=== PATIENT | female | born 1965 | race Caucasian/White ===

== ENCOUNTER 2016-10-07 08:56 | Emergency (ER) | payer BC, OTHER ==
[~2016-10-07] VITALS: Ht 160 cm; Wt 61.0 kg
[2016-10-07 09:01] VITALS: BP 122/73; PULSE 54; RESP 18; TEMP 97.9; O2SAT 98
[2016-10-07] MEDS ORDERED: SERT25TA83 PO (09:16)
[2016-10-07] MEDS ORDERED: MULT-135 PO (09:16)
[2016-10-07] MEDS ORDERED: ALEN35TA24 PO (09:16)
[2016-10-07] MEDS ORDERED: CALCTAB80 PO (09:16)
[2016-10-07] MEDS ORDERED: OMEG100037 (09:16)
[2016-10-07] MEDS ORDERED: SODIUM CHLOR 0.9% 1000 ML INJ 1,000 ML IV SCH (09:22)
--- NOTE | 2016-10-07 09:24 | PD ---
HPI Chief Complaint: Abdominal Pain Time Seen by Provider: 09:04 Travel History International Travel<30 days: No Contact w/Intl Traveler<30days: No Traveled to known affect area: No History of Present Illness HPI This 51-year-old female is complaining of abdominal pain and she started on Saturday feeling nauseated and having some epigastric cramping. She has been having an upset stomach since then and some left upper quadrant pain. Yesterday she ate something and then last night she had quite severe left upper quadrant cramping around 3:00 which lasted for some time. She has not had any vomiting. She has not had a bowel movement since Saturday. She has no history of abdominal surgery. She did have a colonoscopy 2-3 weeks ago and had a small polyp in his sigmoid colon removed. She is not aware of any fever or chills. PFSH Past Medical History Medical History: Denies Significant Hx Influenza Vaccination: No ?: Not Past Surgical History Other Surgery: Yes (MELANOMA RT ARM) Social History Alcohol Use: Yes (ONE PER DAY) Tobacco Use: No Substance Use: No Allergies-Medications (Allergen,Severity, Reaction): Coded Allergies: Penicillin (Verified Allergy, Unknown, 10/07/16) Sulfa (Verified Allergy, Unknown, 10/07/16) Reported Meds & Prescriptions Reported Meds & Active Scripts Active Reported Multi Vitamin (Multiple Vitamin) 1 Tab Tab 1 Tab PO DAILY Fish Oil 1000 mg ([place]-3 Fatty Acids) 1 Cap Cap Calcium 1000 + D (Calcium Carbonate-Cholecalciferol) 1,000-800 Mg-Unit Tab 1 Tab PO Alendronate (Alendronate Sodium) 35 Mg Tab 35 Mg PO Q7D Sertraline (Sertraline HCl) 25 Mg Tab 25 Mg PO DAILY Review of Systems General / Constitutional: No: Fever, Chills Eyes: No: Diploplia, Blurred Vision HENT: No: Headaches Cardiovascular: No: Chest Pain or Discomfort, Palpitations Respiratory: No: Cough, Shortness of Breath Gastrointestinal: Positive: Nausea, Abdominal Pain, No: Vomiting, Diarrhea Genitourinary: No: Frequency Skin: No Rash Physical Exam Narrative GENERAL: Well-developed female SKIN: Warm and dry. HEAD: Atraumatic. Normocephalic. EYES: Pupils equal and round. No scleral icterus. No injection or drainage. ENT: No nasal bleeding or discharge. Mucous membranes pink and moist. NECK: Trachea midline. No JVD. CARDIOVASCULAR: Regular rate and rhythm. No murmur appreciated. RESPIRATORY: No accessory muscle use. Clear to auscultation. Breath sounds equal bilaterally. GASTROINTESTINAL: Abdomen soft, there is some mild left upper quadrant tenderness without guarding or rigidity, nondistended. Hepatic and splenic margins not palpable. MUSCULOSKELETAL: No obvious deformities. No clubbing. No cyanosis. No edema. NEUROLOGICAL: Awake and alert. No obvious cranial nerve deficits. Motor grossly within normal limits. Normal speech. PSYCHIATRIC: Appropriate mood and affect; insight and judgment normal. Data Data Last Documented VS Vital Signs Date Time Temp Pulse Resp B/P Pulse Ox O2 Delivery O2 Flow Rate FiO2 10/07/16 09:01 97.9 54 18 122/73 98 Orders Urinalysis - C+S If Indicated (10/07/16 09:09) Complete Blood Count With Diff (10/07/16 09:22) Comprehensive Metabolic Panel (10/07/16 09:22) Lipase (10/07/16 09:22) Ct Abd/Pel W Iv Contrast(Rout) (10/07/16 09:22) Iv Access Insert/Monitor (10/07/16 09:22) Ondansetron Inj (Zofran Inj) (10/07/16 09:30) Pantoprazole Inj (Protonix Inj) (10/07/16 09:30) Sodium Chlor 0.9% 1000 Ml Inj (Ns 1000 M (10/07/16 09:22) Sodium Chloride 0.9% Flush (Ns Flush) (10/07/16 09:30) Urine Culture (10/07/16 09:05) Al-Mag Hy-Si 40-40-4 Mg/Ml Liq (Mag-Al P (10/07/16 10:15) Iohexol 350 Inj (Omnipaque 350 Inj) (10/07/16 10:49) Labs Laboratory Tests Test 10/07/16 10/07/16 09:05 09:25 Urine Collection Type CLEAN CATCH Urine Color YELLOW Urine Turbidity SLIGHT Urine pH 6.0 Urine Specific [place] 1.012 Urine Protein NEG mg/dL Urine Glucose (UA) NEG mg/dL Urine Ketones NEG mg/dL Urine Occult Blood TRACE Urine Nitrite NEG Urine Bilirubin NEG Urine Leukocyte Esterase SMALL Urine RBC 0-3 /hpf Urine WBC 6-8 /hpf Urine WBC Clumps FEW Urine Squamous Epithelial 0-5 /hpf Cells Urine Transitional Epithelial 0-5 /hpf Cells Urine Amorphous Sediment FEW Urine Bacteria FEW /hpf Microscopic Urinalysis Comment CULTURE INDICATED Urine Collection Time 0905 White Blood Count 5.9 TH/MM3 Red Blood Count 4.19 MIL/MM3 Hemoglobin 13.6 GM/DL Hematocrit 38.3 % Mean Corpuscular Volume 91.4 FL Mean Corpuscular Hemoglobin 32.5 PG Mean Corpuscular Hemoglobin 35.6 % Concent Red Cell Distribution Width 11.7 % Platelet Count 230 TH/MM3 Mean Platelet Volume 6.5 FL Neutrophils (%) (Auto) 49.0 % Lymphocytes (%) (Auto) 43.9 % Monocytes (%) (Auto) 5.5 % Eosinophils (%) (Auto) 1.2 % Basophils (%) (Auto) 0.4 % Neutrophils # (Auto) 2.9 TH/MM3 Lymphocytes # (Auto) 2.6 TH/MM3 Monocytes # (Auto) 0.3 TH/MM3 Eosinophils # (Auto) 0.1 TH/MM3 Basophils # (Auto) 0.0 TH/MM3 CBC Comment DIFF FINAL Differential Comment Sodium Level 142 MEQ/L Potassium Level 4.5 MEQ/L Chloride Level 107 MEQ/L Carbon Dioxide Level 27.0 MEQ/L Anion Gap 8 MEQ/L Blood Urea Nitrogen 11 MG/DL Creatinine 0.72 MG/DL Estimat Glomerular Filtration 85 ML/MIN Rate Random Glucose 97 MG/DL Calcium Level 8.6 MG/DL Total Bilirubin 0.6 MG/DL Aspartate Amino Transf 19 U/L (AST/SGOT) Alanine Aminotransferase 25 U/L (ALT/SGPT) Alkaline Phosphatase 42 U/L Total Protein 6.8 GM/DL Albumin 3.8 GM/DL Lipase 182 U/L [facility] Medical Decision Making Medical Screen Exam Complete: Yes Emergency Medical Condition: Yes Medical Record Reviewed: Yes Differential Diagnosis Differential includes gastritis, diverticulitis Narrative Course Blood work is normal. A CT scan was obtained and there is concern about possible cholecystitis as there is thickening of the gallbladder wall and a small amount of pericholecystic fluid. Her lab work is not suggestive of cholecystitis and reexamined her abdomen and there is no right upper quadrant tenderness. I don't believe she has cholecystitis. Suspect this is gastritis. I recommended she take Prilosec for the next couple of weeks. Follow-up with Dr. Ness Diagnosis Primary Impression: Acute gastritis Qualified Code: K29.00 - Acute gastritis without hemorrhage, unspecified gastritis type Additional Instructions: Take Prilosec daily Disposition: 01 DISCHARGE HOME Condition: Shubham Allen MD Oct 07, 2016 09:24
[2016-10-07 09:27] LABS: BLOOD, URINE TRACE (NEG); GLUCOSE,URINE NEG (NEG); KETONE, URINE NEG (NEG); NITRITE,URINE NEG (NEG)
[2016-10-07] MEDS ORDERED: PANTOPRAZOLE SODIUM 40 MG VIAL IVP ONE (09:30)
[2016-10-07] MEDS ORDERED: SODIUM CHLORIDE 0.9% FLUSH 5 ML FLUSH IVF PRN (09:30)
[2016-10-07] MEDS ORDERED: ONDANSETRON HCL 4 MG/2 ML VIAL IVP ONE (09:30)
[2016-10-07 09:39] LABS: AUTOMATED NEUTROPHIL # 2.9 TH/MM3 (1.8-7.7); BASOPHIL % 0.4 % (0.0-2.0); EOSINOPHIL # 0.1 TH/MM3 (0-0.4); EOSINOPHIL % 1.2 % (0.0-4.0); HEMATOCRIT 38.3 % (35.0-46.0); HEMO FLAGS DIFF FINAL; LYMPH % 43.9 % (9.0-44.0); LYMPHOCYTE # 2.6 TH/MM3 (1.0-4.8); MEAN CELL VOLUME 91.4 FL (80.0-100.0); MEAN CORPUSCULAR HEMOGLOBIN 32.5 PG (27.0-34.0); MEAN CORPUSCULAR HGB CONC 35.6 % (32.0-36.0); MONO % 5.5 % (0.0-8.0); PLATELET COUNT 230 TH/MM3 (150-450); RED BLOOD COUNT 4.19 MIL/MM3 (4.00-5.30); RED CELL DISTRIBUTION WIDTH 11.7 % (11.6-17.2); WHITE BLOOD COUNT 5.9 TH/MM3 (4.0-11.0)
[2016-10-07 09:40] LABS: METHOD OF COLLECTION CLEAN CATCH; URINE COLOR YELLOW (YELLW/STRAW)
[2016-10-07 09:42] LABS: BACTERIA, URINE FEW /hpf; COMMENT (UR) CULTURE INDICATED; COMMENT2 (UR) MUCOUS PRESENT; CULTURE IF INDICATED CULTURE INDICATED; RBC, URINE 0-3 /hpf (0-3); SQUAMOUS EPITHELIAL CELL URINE 0-5 /hpf (0-5); TRANSITIONAL EPI CELLS, URINE 0-5 /hpf
[2016-10-07 10:03] LABS: CHLORIDE 107 MEQ/L (98-107); POTASSIUM 4.5 MEQ/L (3.5-5.1); SODIUM (NA) 142 MEQ/L (136-145)
[2016-10-07 10:06] LABS: ANION GAP 8 MEQ/L (5-15); BLOOD UREA NITROGEN 11 MG/DL (7-18)
[2016-10-07 10:09] LABS: ALT (GPT) 25 U/L (10-53); AST (GOT) 19 U/L (15-37); GLOMERULAR FILTRATION RATE 85 ML/MIN (>89)
[2016-10-07 10:11] LABS: TOTAL BILIRUBIN ADULT 0.6 MG/DL (0.2-1.0)
[2016-10-07 10:12] LABS: ALKALINE PHOSPHATASE 42 U/L (45-117)
[2016-10-07] MEDS ORDERED: ALUMINUM/MAGNESIUM/SIMETH 30 ML CUP PO ONE (10:15)
[2016-10-07] MEDS ORDERED: IOHEXOL 350 MG/ML 10 ML VIAL (for RAD DIAG) IV ONE (10:49)
--- NOTE | 2016-10-07 11:01 | RADHPO ---
EXAM DATE/TIME: 10/07/2016 10:33 [facility] COMPARISON: No previous studies available for comparison. INDICATIONS : Epigrastic pain. IV CONTRAST: 67 cc Omnipaque 350 (iohexol) IV ORAL CONTRAST: No oral contrast ingested. RADIATION DOSE: 5.90 CTDIvol (mGy) MEDICAL HISTORY : None SURGICAL HISTORY : None. ENCOUNTER: Initial ACUITY: 1 day PAIN SCALE: 5/10 LOCATION: abdomen TECHNIQUE: Volumetric scanning of the abdomen and pelvis was performed. Using automated exposure control and ad justment of the mA and/or kV according to patient size, radiation dose was kept as low as reasonably achievable to obtain optimal diagnostic quality images. FINDINGS: LOWER LUNGS: The visualized lower lungs are clear. LIVER: Homogeneous fatty density without evidence of a solid lesion. There is a 13 mm cyst in the right hep atic lobe. There is no dilation of the biliary tree. Nondistended gallbladder with suspected at least mild wall thickening. There is also small pericholecystic fluid.. SPLEEN: Normal size without lesion. PANCREAS: Within normal limits. KIDNEYS: Normal in size and shape. There is no mass, stone or hydronephrosis. ADRENAL GLANDS: Within normal limits. VASCULAR: There is no aortic aneurysm. BOWEL/MESENTERY: The stomach, small bowel, and colon demonstrate no acute abnormality. There is no free intraperitone al air or fluid. I don't clearly see the appendix but there is no evidence of right lower quadrant ac [place] inflammatory change. ABDOMINAL WALL: Within normal limits. RETROPERITONEUM: There is no lymphadenopathy. BLADDER: No wall thickening or mass. REPRODUCTIVE: Within normal limits. INGUINAL: There is no lymphadenopathy or hernia. MUSCULOSKELETAL: No acute bony abnormality demonstrated. CONCLUSION: Suspected acute cholecystitis in the proper clinical setting. No perceptible stones. No other acute a bnormalities are demonstrated. Liver is fatty and there is a benign-appearing 13 mm cyst in the poste rior segment of the right hepatic lobe. Ant Arias MD on October 07, 2016 at 10:57 Board Certified Radiologist. This report was verified electronically.
[2016-10-07 11:25] VITALS: BP 152/83
== END 2016-10-07 11:46 | disposition home or self-care (01) ==
LOC: PHED 08:56
DX: K29.00 Acute gastritis without bleeding (principal)
CPT/HCPCS: 74177; 80053; 81001; 83690; 85025; 87086; 96361; 96374; 96375; 99284; C9113; J2405; J7030; Q9967

== ENCOUNTER 2017-04-18 12:38 | Emergency (ER) | payer BC ==
[~2017-04-18] VITALS: Ht 170.2 cm; Wt 58.7 kg
[~2017-04-18 12:38] MED LIST: ALEN35TA24 PO; CALCTAB80 PO; MULT-135 PO; OMEG100037; SERT25TA83 PO
[2017-04-18 12:43] VITALS: BP 137/65; PULSE 65; RESP 18; TEMP 99
[2017-04-18] MEDS ORDERED: SODIUM CHLOR 0.9% 1000 ML INJ 1,000 ML IV ONE (13:11)
[2017-04-18 13:15] VITALS: RESP 16
[2017-04-18] MEDS ORDERED: SODIUM CHLORIDE 0.9% FLUSH 10 ML FLUSH IVF PRN (13:15)
[2017-04-18] MEDS ORDERED: MORPHINE SULFATE 4 MG/ML INJ IV ONE (13:15)
--- NOTE | 2017-04-18 13:17 | PD ---
HPI . Diarrhea Chief Complaint: GI Complaint Time Seen by Provider: 13:06 Travel History International Travel<30 days: No Contact w/Intl Traveler<30days: No Traveled to known affect area: No History of Present Illness HPI This patient presents with a chief complaint of diarrhea. She is concerned about C. difficile. She has recently been on doxycycline. She states that her diarrhea has waxed and waned. She states that it will wane and she will eat something and then it will recur. She has had some subjective fevers and chills. She has had some abdominal cramping. She reports occasional hematochezia. Sometimes, the diarrhea is mucousy. PFSH Past Medical History Cancer: Yes (skin) Diminished Hearing: No Gastrointestinal Disorders: Yes (GI issues when taking antibiotics) Tetanus Vaccination: > 5 Years ?: Not Past Surgical History Gynecologic Surgery: Yes (breast augmentation) Other Surgery: Yes (MELANOMA RT ARM,) Social History Alcohol Use: Yes (occas) Tobacco Use: No Substance Use: No Allergies-Medications (Allergen,Severity, Reaction): Coded Allergies: clindamycin (Verified Allergy, Intermediate, Rash, 04/18/17) Sulfa (Sulfonamide Antibiotics) (Unverified Allergy, Unknown, 04/18/17) penicillin G (Unverified Allergy, Unknown, 04/18/17) Reported Meds & Prescriptions Reported Meds & Active Scripts Active No Active Prescriptions or Reported Medications Review of Systems Except as stated in HPI: all other systems reviewed are Neg General / Constitutional: Positive: Fever, Chills Gastrointestinal: Positive: Diarrhea, Abdominal Pain, No: Nausea, Vomiting Physical Exam Narrative GENERAL: Awake and alert and in no acute distress. SKIN: warm/dry. HEAD: Normocephalic. Atraumatic. EYES: Pupils equal and round. No scleral icterus. No injection or drainage. ENT: No nasal bleeding or discharge. Mucous membranes pink and moist. NECK: Trachea midline. Full range of motion without pain.. CARDIOVASCULAR: Regular rate and rhythm. Heart sounds are normal. RESPIRATORY: No accessory muscle use. Clear to auscultation. Breath sounds equal bilaterally. GASTROINTESTINAL: Abdomen soft. Nontender. Bowel sounds present. Nondistended. MUSCULOSKELETAL: No obvious deformities. NEUROLOGICAL: Awake and alert. No obvious cranial nerve deficits. Motor grossly within normal limits. Normal speech. PSYCHIATRIC: Appropriate mood and affect; insight and judgment normal. Data Data Last Documented VS Vital Signs Date Time Temp Pulse Resp B/P (MAP) Pulse Ox O2 Delivery O2 Flow Rate FiO2 04/18/17 13:15 16 04/18/17 12:43 99.0 65 137/65 (89) Orders Orders Complete Blood Count With Diff (04/18/17 13:11) Basic Metabolic Panel (Bmp) (04/18/17 13:11) Iv Access Insert/Monitor (04/18/17 13:11) Ecg Monitoring (04/18/17 13:11) Oximetry (04/18/17 13:11) Morphine Inj (Morphine Inj) (04/18/17 13:15) Sodium Chlor 0.9% 1000 Ml Inj (Ns 1000 M (04/18/17 13:11) Sodium Chloride 0.9% Flush (Ns Flush) (04/18/17 13:15) C Diff Toxin Pcr (04/18/17 13:11) Enteric Path (Stool) (04/18/17 13:11) Labs Laboratory Tests Test 04/18/17 13:08 04/18/17 13:25 White Blood Count 12.8 TH/MM3 Red Blood Count 4.22 MIL/MM3 Hemoglobin 13.1 GM/DL Hematocrit 38.2 % Mean Corpuscular Volume 90.5 FL Mean Corpuscular Hemoglobin 31.1 PG Mean Corpuscular Hemoglobin Concent 34.3 % Red Cell Distribution Width 12.0 % Platelet Count 265 TH/MM3 Mean Platelet Volume 6.9 FL Neutrophils (%) (Auto) 79.6 % Lymphocytes (%) (Auto) 13.7 % Monocytes (%) (Auto) 5.4 % Eosinophils (%) (Auto) 1.2 % Basophils (%) (Auto) 0.1 % Neutrophils # (Auto) 10.1 TH/MM3 Lymphocytes # (Auto) 1.8 TH/MM3 Monocytes # (Auto) 0.7 TH/MM3 Eosinophils # (Auto) 0.2 TH/MM3 Basophils # (Auto) 0.0 TH/MM3 CBC Comment DIFF FINAL Differential Comment Blood Urea Nitrogen 12 MG/DL Creatinine 0.80 MG/DL Random Glucose 79 MG/DL Calcium Level 8.4 MG/DL Sodium Level 140 MEQ/L Potassium Level 3.8 MEQ/L Chloride Level 105 MEQ/L Carbon Dioxide Level 25.7 MEQ/L Anion Gap 9 MEQ/L Estimat Glomerular Filtration Rate 75 ML/MIN MDM Medical Decision Making Medical Screen Exam Complete: Yes Emergency Medical Condition: Yes Differential Diagnosis Differential diagnosis of diarrhea includes but is not limited to early enteritis, bacterial enteritis, antibiotic induced diarrhea, irritable bowel syndrome Narrative Course This patient presents for the evaluation and treatment of diarrhea. CBC & BMP Diagram 04/18/17 13:25 Calcium Level 8.4 L Stool samples are pending. I will treat her presumptively for C. dif. Diagnosis Primary Impression: Diarrhea Qualified Codes: R19.7 - Diarrhea, unspecified Patient Instructions: Acute Diarrhea (ED), General Instructions Med/Other Pt SpecificInfo: Prescription(s) given Scripts Metronidazole (Flagyl) 500 Mg Tab 500 MG PO BID for Infection for 10 Days, TAB 0 Refills Prov: Lynda Yin MD 04/18/17 Disposition: 01 DISCHARGE HOME Condition: Stable Lynda Yin MD Apr 18, 2017 13:17
[2017-04-18 13:49] LABS: AUTOMATED NEUTROPHIL # 10.1 TH/MM3 (1.8-7.7); BASOPHIL % 0.1 % (0.0-2.0); EOSINOPHIL # 0.2 TH/MM3 (0-0.4); EOSINOPHIL % 1.2 % (0.0-4.0); HEMATOCRIT 38.2 % (35.0-46.0); LYMPH % 13.7 % (9.0-44.0); LYMPHOCYTE # 1.8 TH/MM3 (1.0-4.8); MEAN CELL VOLUME 90.5 FL (80.0-100.0); MEAN CORPUSCULAR HEMOGLOBIN 31.1 PG (27.0-34.0); MEAN CORPUSCULAR HGB CONC 34.3 % (32.0-36.0); MONO % 5.4 % (0.0-8.0); NEUT % 79.6 % (16.0-70.0); PLATELET COUNT 265 TH/MM3 (150-450); RED BLOOD COUNT 4.22 MIL/MM3 (4.00-5.30); WHITE BLOOD COUNT 12.8 TH/MM3 (4.0-11.0)
[2017-04-18 13:53] LABS: HEMO FLAGS DIFF FINAL
[2017-04-18 13:58] LABS: POTASSIUM 3.8 MEQ/L (3.5-5.1)
[2017-04-18 14:00] VITALS: BP 131/75; PULSE 61; RESP 16; O2SAT 100
[2017-04-18 14:00] LABS: BICARBONATE 25.7 MEQ/L (21.0-32.0)
[2017-04-18] MEDS ORDERED: METR-1 PO (14:11)
[2017-04-18] MEDS ORDERED: DICY10 PO (14:17)
[2017-04-18 14:31] VITALS: RESP 16
[2017-04-18 14:55] VITALS: BP 126/66
[2017-04-18 17:44] LABS: C. DIFF EPI 027 PRESUMPTIVE NEGATIVE (NEGATIVE)
== END 2017-04-18 16:05 | disposition home or self-care (01) ==
LOC: PHED 12:38
DX: R19.7 Diarrhea, unspecified (principal)
CPT/HCPCS: 80048; 85025; 87493; 87506; 96361; 96374; 99284; J2270; J7030